=== PATIENT | male | born 1995 | race Caucasian/White ===

== ENCOUNTER 2022-05-21 17:19 | Emergency (ER) | payer SELFPAY ==
[2022-05-21 19:32] LABS: CORONAVIRUS COVID-19 NAA NEGATIVE (NEGATIVE); INFLUENZA A NAA NEGATIVE (NEGATIVE); INFLUENZA B NAA NEGATIVE (NEGATIVE)
== END 2022-05-21 19:46 | disposition home or self-care (01) ==
LOC: MW.ED 17:19
DX: J02.9 Acute pharyngitis, unspecified (principal); Z20.822 Contact with and (suspected) exposure to COVID-19
CPT/HCPCS: 0240U; 71045; 87651; 99283